=== PATIENT | female | born 1990 | race Asian ===

== ENCOUNTER 2021-07-04 13:47 | Emergency (ER) | payer OTHER ==
[~2021-07-04] VITALS: Ht 167.6 cm; Wt 72.7 kg
[2021-07-04 13:48] VITALS: BP 127/73
[2021-07-04] MEDS ORDERED: LIDOCAINE 5% (LIDODERM) PATCH TD ONE (16:35)
[2021-07-04] MEDS ORDERED: KETOROLAC 60MG 2ML VIAL IM ONE (16:35)
[2021-07-04] MEDS ORDERED: NAPR-837 PO (16:38)
[2021-07-04] MEDS ORDERED: ASPE4PAD TOP (16:38)
[2021-07-04] MEDS ORDERED: METH-1165 PO (16:38)
[2021-07-04] MEDS ORDERED: LIDO5DIS41 TOP (17:09)
[2021-07-04] MEDS ORDERED: **NOTE PATIENT COMMENT** MISC XX SCH (21:00)
== END 2021-07-04 16:58 | disposition home or self-care (01) ==
LOC: M ED 13:47
DX: S39.012A Strain of muscle, fascia and tendon of lower back, initial encounter (principal); X50.0XXA Overexertion from strenuous movement or load, initial encounter; Y92.9 Unspecified place or not applicable; Y93.9 Activity, unspecified; Y99.9 Unspecified external cause status; Z79.899 Other long term (current) drug therapy
CPT/HCPCS: 96372; 99282; J1885

== ENCOUNTER → 2022-03-19 | Outpatient (CLI) | payer OTHER ==
[~2022-03-19] MED LIST: ASPE4PAD TOP; LIDO5DIS41 TOP; METH-1165 PO; NAPR-837 PO
== END ==
LOC: M WHC 09:48
PROVIDERS: ATTEND Obstetrics & Gynecology
DX: Z36.3 Encounter for antenatal screening for malformations (principal); Z3A.19 19 weeks gestation of pregnancy